=== PATIENT | female | born 1955 | race Caucasian/White ===

== ENCOUNTER 2016-12-22 10:22 | Day surgery (SDC) | payer BC ==
[2016-12-20 09:43] VITALS: BMI 36.1
--- NOTE | 2016-12-22 08:01 | HP ---
Admitting History and Physical - Admission Chief Complaint: Right knee postoperative neuroma History of Present Illness: 61 year old female presents in regard to her right knee. She is status post previous surgery to her right knee. Following that she developed a painful tingling sensation in her right knee, which resulted as a neuroma. Patient has failed conservative treatment. Patient would like to proceed with a right knee excision of neuroma. History Source: Patient - Past Medical History Cardiovascular: Yes: AFIB Pulmonary: Yes: Asthma Gastrointestinal: Yes: GERD Psych: Yes: Anxiety ENT: Yes: Allergic Rhinitis - Past Surgical History Additional Past Surgical History: See written H&P in chart - Smoking History Smoking history: Never smoked Have you smoked in the past 12 months: No - Alcohol/Substance Use Hx Alcohol Use: Yes (SOCIALLY) <Mayi Carr - Last Filed: 12/22/16 07:56> - Admission History of Present Illness: 61yo female s/p R knee partial knee replacement and subsequent polyethylene exchange for instability. Pt has had localized pain adjacent to the incision for some time now. Injection of anesthetic in this area in the office completely relieved her pain 100%. The pain returned when the injection wore off. 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 Neuroma excision surgery was discussed after her second injection and she elected to proceed with the procedure. History Source: Patient, Medical Record Limitations to Obtaining History: No Limitations - Past Medical History Additional Past Medical History: See printed PMH/PSH in chart <Sp Moore - Last Filed: 12/22/16 11:59> Home Medications <Mayi Carr - Last Filed: 12/22/16 07:56> <Sp Moore - Last Filed: 12/22/16 11:59> - Allergies Allergies/Adverse Reactions: Allergies Allergy/AdvReac Type Severity Reaction Status Date / Time metoclopramide HCl Allergy ARRHYTHMIA Verified 12/20/16 18:51 [From Reglan] prochlorperazine edisylate Allergy "FACIAL Verified 12/20/16 18:51 [From Compazine] DYSKINESIA" prochlorperazine maleate Allergy "FACIAL Verified 12/20/16 18:51 [From Compazine] DYSKINESIA" propoxyphene HCl Allergy Rash Verified 12/20/16 18:51 [From Darvon] - Home Medications Home Medications: Ambulatory Orders Alprazolam [Xanax] 1 mg PO PRN PRN 03/27/14 Celecoxib [Celebrex] 200 mg PO DAILY 03/27/14 Cyclosporine [Restasis] 1 each OU BID 03/27/14 Desloratadine [Clarinex] 5 mg PO DAILY 03/27/14 Pseudoephedrine HCl [Sudafed] 30 mg PO DAILY 03/27/14 Fluticasone Propionate [Flovent Diskus] 50 mcg IH PRN PRN 11/06/14 Lidocaine 5% Patch [Lidoderm -] 1 patch TP DAILY 11/06/14 Metaxalone [Skelaxin] 800 mg PO HS PRN 11/06/14 Mometasone Furoate [Nasonex] 1 - 2 inh NS PRN PRN 11/06/14 Tiotropium [place] [Spiriva] 18 mcg IH PRN PRN 11/06/14 Tramadol HCl 50 mg PO PRN PRN #40 tablet 11/07/14 Verapamil HCl [Verapamil ER] 120 mg PO HS 11/07/14 Methotrexate [Mexate -] 6 each PO WEEKLY 12/20/16 Omeprazole 20 mg PO DAILY 12/20/16 Review of Systems - Review of Systems Musculoskeletal: reports: Joint Pain (Right knee) <Mayi Crar - Last Filed: 12/22/16 07:56> Physical Examination Constitutional: Yes: Well Nourished, No Distress Eyes: Yes: Conjunctiva Clear HENT: Yes: Atraumatic, Normocephalic Neck: Yes: Supple Cardiovascular: Yes: Regular Rate and Rhythm Respiratory: Yes: Regular Gastrointestinal: Yes: Soft ...Rectal Exam: Yes: Deferred Musculoskeletal: Yes: Other (Right knee pain) <Mayi aCrr - Last Filed: 12/22/16 07:56> Vital Signs: Vital Signs Temperature 98.4 F 12/22/16 11:02 Pulse Rate 83 12/22/16 11:02 Respiratory Rate 18 12/22/16 11:02 Blood Pressure 142/76 12/22/16 11:02 O2 Sat by Pulse Oximetry (%) 97 12/22/16 11:02 Constitutional: Yes: Well Nourished, No Distress, Calm Eyes: Yes: WNL, Conjunctiva Clear, EOM Intact HENT: Yes: WNL, Atraumatic, Normocephalic Neck: Yes: WNL, Supple Cardiovascular: Yes: WNL, Regular Rate and Rhythm Respiratory: Yes: WNL, Regular Gastrointestinal: Yes: WNL ...Rectal Exam: Yes: Deferred Musculoskeletal: Yes: WNL, Other (Right knee - healed surgical scar, c/d/i. ROM 0 to >115 degrees without pain during ROM testing. No valgus/varus laxity. No significant pain on exam other than the localized neuroma which was marked with a skin marker.) Extremities: Yes: WNL, Other Edema: No Peripheral Pulses WNL: Yes Integumentary: Yes: Other (Healed surgical scar with no erythema, induration , or signs of infection. Localized tender spot approx 1-cm lateral to the inferior edge of the incision scar. Otherwise no other painful areas.) Wound/Incision: Yes: Clean/Dry Neurological: Yes: WNL, Alert, Oriented ...Motor Strength: WNL Psychiatric: Yes: WNL, Alert, Oriented Labs: reviewed in paper chart <Sp Moore - Last Filed: 12/22/16 11:59> Imaging - Results X-ray: Image Reviewed <Sp Moore - Last Filed: 12/22/16 11:59> Problem List - Problems (1) Neuroma of right lower extremity Assessment/Plan: surgical resection of neuroma / selective denervation procedure Code(s): D36.13 - [facility] NRV & AUTONM NRV SYS OF LOW B, INC HIP <Sp Moore - Last Filed: 12/22/16 11:59> Assessment/Plan 61 year old female with a postoperative right knee neuroma. Patient has failed conservative treatment. Proceed with a right knee excision of neuroma. <Mayi Carr - Last Filed: 12/22/16 07:56>
[2016-12-22] MEDS ORDERED: LIDOCAINE 1%-EPI 1:100,000 30 ML MDV IJ ONE (12:07)
[2016-12-22] MEDS ORDERED: BUPIVACAINE HCL/PF 2.5 MG/ML - 30 ML VIAL IJ ONE (12:07)
[2016-12-22] MEDS ORDERED: PROPOFOL 20 ML ONE (12:08)
[2016-12-22] MEDS ORDERED: MIDAZOLAM HCL 2 MG/2 ML SINGLE DOSE VIAL ONE ×3 (12:08→12:40)
--- NOTE | 2016-12-22 13:18 | OP ---
Operative Note - Note: Operative Date: 12/22/16 Pre-Operative Diagnosis: right knee postoperative neuroma Operation: right knee neuroma excision Post-Operative Diagnosis: Same as Pre-op Surgeon: Sp Moore Anesthesia: Local Estimated Blood Loss (mls): 0
[2016-12-22 13:30] VITALS: TEMP 97.8
--- NOTE | 2016-12-22 13:54 | OP ---
DATE OF OPERATION: 12/22/2016 PREOPERATIVE DIAGNOSIS: Right knee postoperative neuroma. POSTOPERATIVE DIAGNOSIS: Right knee postoperative neuroma. PROCEDURE: Right knee neuroma excision. SURGEON: Lolly Carter MD HAND CHAIN MAKER: None. ANESTHESIA: Local plus sedation. ESTIMATED BLOOD LOSS: Zero mL. COMPLICATIONS: None. DISPOSITION: The patient was transferred to the PACU in stable condition. INDICATIONS: This is a 61-year-old female who is status post right knee MAKOplasty, partial knee replacement with subsequent polyethylene exchange for laxity several months after the index procedure. After the surgery, the knee was stable and mechanically sound, but she had persistent pain which was localized to a discrete spot inferolateral to the arthroplasty incision. She was seen and examined by me in the office over the past few months and diagnosed with a neuroma, likely of the infrapatellar branch of the saphenous nerve. On 2 different occasions, we injected the painful spot with lidocaine and a small amount of corticosteroid. The 1st injection gave her several months of relief. The 2nd injection only lasted for a short few weeks. After this, the patient elected to have the neuroma surgically removed as she has had a similar condition in her foot and that resolved after surgical excision of the neuroma. The patient understood that the surgical procedure essentially creates a numb spot in place of the previously painful spot and the patient stated that she preferred having this area of numbness to the pain she currently has. She stated that she had similar outcome in her foot and had gotten used to the numbness and it was much better than the pain that she had had prior to the procedure. Other risks, benefits, and alternatives to the procedure were explained to the patient in great detail and she elected to proceed with the surgery. Specifically, we discussed the risks of infection with any type of skin procedure and also the chance that the results may be temporary because the nerve can regenerate and the neuroma could grow back later on. On the date of the procedure, the patient was brought to the operating room and placed supine on the OR table. All bony prominences were padded. Intravenous sedation was administered by the anesthesiologist. A timeout was performed with the team to verify the patient's name, side, site, and administration of antibiotics. Ancef was then administered by the anesthesiologist for infection prophylaxis. A 2-cm incision was made over the painful area approximately 2 cm lateral and 1 cm distal to the inferior edge of the arthroplasty scar. This spot was localized preoperatively in the holding area with the patient unanesthetized and fully awake and we palpated various areas around the knee until we found the epicenter of the pain and this was marked with a skin marker with an "X" and we then repeated this testing with the knee covered with a blanket so that blindly the patient would localize it and we found that this was the spot that she kept returning to after multiple attempts. After the incision, electrocautery was used to cauterize subcutaneous bleeders. Blunt dissection was used to dissect through the subcutaneous tissues down to the fascia overlying the bone. From here, several cutaneous nerves were encountered and these were sharply removed using a rongeur. The cut ends of the nerves were cauterized with electrocautery in hopes of minimizing the chance of nerve regeneration. Next, all vascular structures that had the potential to bleed into this wound bed were cauterized with electrocautery. The entire field was searched for additional cutaneous nerves and no other nerves were found. The wound was then thoroughly irrigated with normal saline. Vicryl 2-0 sutures were used for the subcutaneous tissues with simple interrupted sutures. Monocryl 3-0 suture was used for the skin in a running subcuticular fashion. Dermabond skin adhesive was used for additional closure strength and watertight seal and a sterile Aquacel dressing and MEDARDO wrap were then placed over the incision site. The patient was then taken to the PACU in stable condition fully awake. LOLLY CARTER M.D. LUIS [id number]
[2016-12-22 13:59] VITALS: BP 135/61; PULSE 74
== END 2016-12-22 13:55 | disposition home or self-care (01) ==
LOC: FASU 10:22
PROVIDERS: ATTEND Student in an Organized Health Care Education/Training Program
PROC: 01BD0ZZ Excision of Femoral Nerve, Open Approach (ICD-10-PCS; principal; 2016-12-22 12:54)
DX: G57.81 Other specified mononeuropathies of right lower limb (principal)

== ENCOUNTER 2017-11-24 09:07 | Day surgery (SDC) | payer BC ==
[2017-11-23 10:42] VITALS: BMI 27.1
[2017-11-24] MEDS ORDERED: PROPOFOL 20 ML ONE (11:01)
[2017-11-24] MEDS ORDERED: LIDOCAINE HCL/PF 2% SDV 5ML VIAL ONE (11:02)
[2017-11-24] MEDS ORDERED: DEXAMETHASONE SOD PHOSPHATE 4 MG/1 ML VIAL ONE (11:02)
[2017-11-24] MEDS ORDERED: ONDANSETRON 4 MG/2 ML VIAL ONE (11:02)
[2017-11-24] MEDS ORDERED: ceFAZolin SODIUM 1 GM VIAL ONE (11:02)
[2017-11-24] MEDS ORDERED: KETOROLAC TROMETHAMINE 30 MG/1 ML VIAL ONE (11:02)
[2017-11-24] MEDS ORDERED: fentaNYL CITRATE 250 MCG/5 ML VIAL ONE (11:03)
[2017-11-24] MEDS ORDERED: MIDAZOLAM HCL 2 MG/2 ML SINGLE DOSE VIAL ONE (11:03)
[2017-11-24] MEDS ORDERED: BUPIVACAINE HCL/PF 2.5 MG/ML - 30 ML VIAL IJ ONE (11:15)
[2017-11-24] MEDS ORDERED: EPINEPHrine 1:1,000 1 MG/1 ML - 30ML VIAL (INJECTION) ONE (11:15)
[2017-11-24] MEDS ORDERED: BUPIVACAINE HCL/PF 0.5% (5MG/ML) 10 ML VIAL ONE (11:21)
[2017-11-24] MEDS ORDERED: BUPIVACAINE HCL/PF 0.25% (2.5MG/ML) 10 ML VIAL IJ ONE (12:33)
[2017-11-24] MEDS ORDERED: ONDANSETRON 4 MG/2 ML VIAL IVPUSH PRN (13:21)
[2017-11-24] MEDS ORDERED: oxyCODONE HCL 5 MG TABLET PO PRN ×2 (13:21)
[2017-11-24] MEDS ORDERED: LACTATED RINGERS SOLUTION 1,000 ML IV SCH (13:30)
[2017-11-24 20:12] VITALS: BP 121/74; PULSE 71; TEMP 98.2
--- NOTE | 2017-11-26 22:52 | OP ---
DATE OF OPERATION: 11/24/2017 SURGEON: Duong Mart MD USER INTERFACE DESIGNER: BRADFORD Chester PREOPERATIVE DIAGNOSIS: 1. Left knee mediolateral meniscal tear. 2. Left knee cartilage injury. 3. Left knee synovitis. POSTOPERATIVE DIAGNOSIS: 1. Left knee mediolateral meniscal tear. 2. Left knee cartilage injury. 3. Left knee synovitis. PROCEDURE: 1. Left knee arthroscopy with partial meniscectomy of the mediolateral meniscus, CPT code 30691. 2. Left knee arthroscopy with chondroplasty and abrasioplasty, CPT code 03509. 3. Left knee arthroscopy with synovectomy including removal of medial plica, CPT code 54710. FINDINGS: 1. Medial meniscus posterior horn tear. 2. Lateral meniscus complete tearing from anterior horn to posterior horn with extensive fragmentation. 3. Synovitis of the patellofemoral and mediolateral notch area. 4. Diffuse grade 1-2 cartilage injury of the medial femoral condyle, tibial plateau, and antegrade 3 changes of medial tibial plateau and femoral condyle. 5. ACL and PCL intact. 6. Diffuse grade 2-4 cartilage injury of the lateral femoral condyle and tibial plateau with 20% grade 4 changes. 7. Central grade 2 cartilage injury of the patella and grade 2-4 changes of the patellofemoral trochlea. PROCEDURE: Informed consent was obtained. The patient came to the operating room, where the lower extremity was prepped and draped in a sterile fashion. A tourniquet was placed on the upper thigh, but not inflated. Using standard arthroscopic technique, a lateral incision and portal was made to allow for introduction of the camera into the suprapatellar bursa. This was then taken to the medial joint line, where under direct visualization, a medial incision and portal was made. Excessive synovium noted in the medial, lateral and patellofemoral and notch area was removed by an upbiter, shaver and Bovie cautery. This was found to bring in inflammatory tissue into the joint surface, a source of pain and dysfunction. Probing of the medial and lateral meniscus found tears, as described in the findings. These were removed with the upbiter and shaver and taken back to a stable rim. Grade 2 to 3 degenerative changes were treated with a chondroplasty, removing all flaking surfaces with low-setting Bovie along the periphery to prevent further flaking. Grade 4 changes, as noted, were treated with an abrasoplasty, creating a bleeding surface at the bone/cartilage interface. Aggressive debridement with shaver/av created bleeding surface. Mirco fracture also done when indicated in findings All areas of the knee were once again reexamined. The knee was then drained and a single suture was placed in all portals. A sterile dressing was placed and the patient was transferred to the recovery room without complication. DUONG MART M.D. [id number]
== END 2017-11-24 18:30 | disposition home or self-care (01) ==
LOC: FASU 09:07
PROVIDERS: ATTEND Orthopaedic Surgery
PROC: 0SBD4ZZ Excision of Left Knee Joint, Percutaneous Endoscopic Approach (ICD-10-PCS; 2017-11-24)
PROC: 0SBD4ZZ Excision of Left Knee Joint, Percutaneous Endoscopic Approach (ICD-10-PCS; 2017-11-24)
PROC: 0SBD4ZZ Excision of Left Knee Joint, Percutaneous Endoscopic Approach (ICD-10-PCS; principal; 2017-11-24 12:26)
DX: S83.242A Other tear of medial meniscus, current injury, left knee, initial encounter (principal); S83.282A Other tear of lateral meniscus, current injury, left knee, initial encounter; S83.8X2A Sprain of other specified parts of left knee, initial encounter; M65.862 Other synovitis and tenosynovitis, left lower leg; X58.XXXA Exposure to other specified factors, initial encounter; Y93.9 Activity, unspecified; Y92.9 Unspecified place or not applicable
CPT/HCPCS: 94760

== ENCOUNTER 2023-03-15 07:11 | Day surgery (SDC) | payer OTHER ==
[2023-03-10 09:18] VITALS: BMI 28.3
[2023-03-15] MEDS ORDERED: MIDAZOLAM HCL 2 MG/2 ML SINGLE DOSE VIAL ONE (09:34)
[2023-03-15] MEDS ORDERED: DEXMEDETOMIDINE HCL 200 MCG/2 ML IVPB ONE (09:34)
[2023-03-15] MEDS ORDERED: BUPIVACAINE LIPOSOME/PF (EXPAREL) 266 MG/20 ML VIAL ONE (09:34)
[2023-03-15] MEDS ORDERED: FENTANYL CITRATE/PF 50 MCG/ML VIAL ONE ×2 (09:34→13:14)
[2023-03-15] MEDS ORDERED: BUPIVACAINE HCL/PF 0.5% (5MG/ML) 10 ML VIAL ONE (09:42)
[2023-03-15] MEDS ORDERED: CEFAZOLIN 2 GM in DEXTROSE 5%-WATER - 50 ML IVPB ONE (10:00)
[2023-03-15] MEDS ORDERED: HYDROmorphone HCL/PF 1 MG/ML VIAL ONE (10:23)
[2023-03-15] MEDS ORDERED: ePHEDrine SULFATE 50 MG/1 ML AMPULE ONE (10:25)
[2023-03-15] MEDS ORDERED: PROPOFOL 20 ML ONE (10:26)
[2023-03-15] MEDS ORDERED: TRANEXAMIC ACID 1000 MG/10 ML VIAL IVPUSH ONE ×2 (11:00→19:00)
[2023-03-15] MEDS ORDERED: ceFAZolin SODIUM 1 GM VIAL ONE (11:11)
[2023-03-15] MEDS ORDERED: TRANEXAMIC ACID 1000 MG/10 ML VIAL ONE (11:11)
[2023-03-15] MEDS ORDERED: LIDOCAINE HCL/PF 2% SDV 5ML VIAL ONE (11:11)
[2023-03-15] MEDS ORDERED: ONDANSETRON 4 MG/2 ML VIAL ONE ×2 (11:11→13:14)
[2023-03-15] MEDS ORDERED: ONDANSETRON 4 MG/2 ML VIAL IVPUSH PRN ×2 (12:20→12:37)
[2023-03-15] MEDS ORDERED: MAGNESIUM HYDROX 2400MG/30ML ORAL SUSPENSION 30 ML CUP PO PRN (12:20)
[2023-03-15] MEDS ORDERED: MAG HYDROX/AL HYDROX/SIMETH 30 ML UNIT-DOSE CUP PO PRN (12:20)
[2023-03-15] MEDS ORDERED: ALPRAZolam 1 MG TABLET PO PRN (12:26)
[2023-03-15] MEDS ORDERED: MOMETASONE FUROATE PUMP NS PRN (12:26)
[2023-03-15] MEDS ORDERED: FLUTICASONE PROPIONATE IH PRN (12:26)
[2023-03-15] MEDS ORDERED: ADALIMUMAB 40 MG/0.8 ML SQ SCH (12:30)
[2023-03-15] MEDS ORDERED: ALBUTEROL SO4 HFA INHALER IH PRN (12:30)
[2023-03-15] MEDS ORDERED: ACETAMINOPHEN 1000 MG/100 ML BAG IVPB SCH (12:30)
[2023-03-15] MEDS: oxyCODONE HCL 5 MG TABLET PO PRN ×2 (14:23→18:28)
[2023-03-15] MEDS: CEFAZOLIN SODIUM 2 GM in DEXTROSE 5%-WATER 100 ML IVPB SCH (18:28)
[2023-03-15] MEDS: LACTATED RINGERS SOLUTION 1,000 ML IV SCH (18:28)
[2023-03-15] MEDS: ACETAMINOPHEN 1000 MG/100 ML BAG IVPB SCH (21:08)
[2023-03-15] MEDS: DEXAMETHASONE 4 MG TABLET (FP) PO SCH (21:09)
[2023-03-15] MEDS: SENNOSIDES/DOCUSATE COMBO (SENNA PLUS) TABLET (UD) PO SCH (21:10)
[2023-03-15] MEDS: metoPROLOL SUCCINATE 25 MG TAB.SR.24H (FP) PO SCH ×2 (21:11→21:16)
[2023-03-15] MEDS: ASCORBIC ACID 500 MG TABLET (FP) PO SCH (21:11)
[2023-03-15] MEDS: ASPIRIN 81 MG CHEWABLE TABLETS PO SCH (21:11)
[2023-03-15] MEDS: HYDROXYCHLOROQUINE SO4 200 MG TABLET (FP) PO SCH (21:11)
[2023-03-15] MEDS ORDERED: CELECOXIB 100 MG CAPSULE PO SCH (22:00)
[2023-03-15] MEDS ORDERED: FAMOTIDINE 20 MG TABLET PO SCH (22:00)
[2023-03-15] MEDS ORDERED: PATIENT'S OWN MEDICATION (NON-FORMULARY) (Cyclosporine [Restasis] 1 EACH Droperette) OU SCH (22:00)
[2023-03-16] MEDS: CEFAZOLIN SODIUM 2 GM in DEXTROSE 5%-WATER 100 ML IVPB SCH (01:46)
[2023-03-16] MEDS: oxyCODONE HCL 5 MG TABLET PO PRN ×4 (03:50→16:51)
[2023-03-16] MEDS: ACETAMINOPHEN 1000 MG/100 ML BAG IVPB SCH ×3 (06:27→20:17)
[2023-03-16] MEDS: CELECOXIB 200 MG CAPSULE PO SCH (09:12)
[2023-03-16] MEDS: LIDOCAINE 5% TOPICAL PATCH TP SCH (09:12)
[2023-03-16] MEDS: PSEUDOEPHEDRINE HCL 30 MG TABLET PO SCH (09:14)
[2023-03-16] MEDS: ASPIRIN 81 MG CHEWABLE TABLETS PO SCH ×2 (09:14→21:25)
[2023-03-16] MEDS: PANTOPRAZOLE 40 MG TABLET PO SCH (09:15)
[2023-03-16] MEDS: SENNOSIDES/DOCUSATE COMBO (SENNA PLUS) TABLET (UD) PO SCH ×2 (09:15→21:26)
[2023-03-16] MEDS: GABAPENTIN 300 MG CAPSULE PO SCH (09:16)
[2023-03-16] MEDS: DEXAMETHASONE 4 MG TABLET (FP) PO SCH ×2 (09:16→21:26)
[2023-03-16] MEDS: LORATADINE 10 MG TABLET PO SCH (09:16)
[2023-03-16] MEDS: ASCORBIC ACID 500 MG TABLET (FP) PO SCH ×2 (09:17→21:26)
[2023-03-16] MEDS: LISINOPRIL 20 MG TABLET PO SCH (09:17)
[2023-03-16] MEDS: HYDROXYCHLOROQUINE SO4 200 MG TABLET (FP) PO SCH ×2 (09:18→21:26)
[2023-03-16] MEDS: MULTIVITAMINS (DAILY MVI) TABLET (FP) PO SCH (09:18)
[2023-03-16] MEDS: HYDROCHLOROTHIAZIDE 12.5 MG CAPSULE (FP) PO SCH (09:47)
[2023-03-16] MEDS: TIOTROPIUM BROMIDE 2.5 MCG (SPIRIVA) RESPIMAT INHALER IH SCH (09:47)
[2023-03-16] MEDS ORDERED: TRANEXAMIC ACID 1000 MG/10 ML VIAL IVPUSH ONE (10:00)
[2023-03-16] MEDS ORDERED: DEXAMETHASONE 4 MG TABLET (FP) PO ONE (10:00)
[2023-03-16] MEDS ORDERED: PATIENT'S OWN MEDICATION (NON-FORMULARY) (Omeprazole 20 MG Capsule.Dr) PO SCH (10:00)
[2023-03-16] MEDS ORDERED: PATIENT'S OWN MEDICATION (NON-FORMULARY) (Tiotropium Bromide [Spiriva] 18 MCG/INH Inh) IH SCH (10:00)
[2023-03-16] MEDS ORDERED: DESLORATADINE 5 MG PO SCH (10:00)
[2023-03-16] MEDS ORDERED: PATIENT'S OWN MEDICATION (NON-FORMULARY) (Lisinopril/Hydrochlorothiazide [Lisinopril-Hctz PO SCH (10:00)
[2023-03-16] MEDS: LACTATED RINGERS SOLUTION 1,000 ML IV SCH (16:37)
[2023-03-16] MEDS ORDERED: LIDOCAINE PATCH REMOVAL MC SCH (22:00)
[2023-03-16] MEDS ORDERED: ATORVASTATIN CA 10 MG TABLET (FP) PO SCH (22:00)
[2023-03-16] MEDS: metoPROLOL SUCCINATE 25 MG TAB.SR.24H (FP) PO SCH (23:30)
[2023-03-17] MEDS: oxyCODONE HCL 5 MG TABLET PO PRN ×2 (04:30→10:46)
[2023-03-17] MEDS: ACETAMINOPHEN 1000 MG/100 ML BAG IVPB SCH (06:55)
[2023-03-17 09:46] VITALS: BP 132/57; PULSE 80; RESP 16; TEMP 98.7
[2023-03-17] MEDS: ASPIRIN 81 MG CHEWABLE TABLETS PO SCH (09:48)
[2023-03-17] MEDS: LISINOPRIL 20 MG TABLET PO SCH (09:49)
[2023-03-17] MEDS: CELECOXIB 200 MG CAPSULE PO SCH (09:49)
[2023-03-17] MEDS: ASCORBIC ACID 500 MG TABLET (FP) PO SCH (09:49)
[2023-03-17] MEDS: HYDROXYCHLOROQUINE SO4 200 MG TABLET (FP) PO SCH (09:49)
[2023-03-17] MEDS: MULTIVITAMINS (DAILY MVI) TABLET (FP) PO SCH (09:49)
[2023-03-17] MEDS: LORATADINE 10 MG TABLET PO SCH (09:49)
[2023-03-17] MEDS: DEXAMETHASONE 4 MG TABLET (FP) PO SCH (09:50)
[2023-03-17] MEDS: LIDOCAINE 5% TOPICAL PATCH TP SCH (09:52)
[2023-03-17] MEDS: GABAPENTIN 300 MG CAPSULE PO SCH (09:52)
[2023-03-17] MEDS: HYDROCHLOROTHIAZIDE 12.5 MG CAPSULE (FP) PO SCH (09:54)
[2023-03-17] MEDS: PANTOPRAZOLE 40 MG TABLET PO SCH (09:54)
[2023-03-17] MEDS: SENNOSIDES/DOCUSATE COMBO (SENNA PLUS) TABLET (UD) PO SCH (09:54)
[2023-03-17] MEDS: TIOTROPIUM BROMIDE 2.5 MCG (SPIRIVA) RESPIMAT INHALER IH SCH (10:47)
[2023-03-17] MEDS: PSEUDOEPHEDRINE HCL 30 MG TABLET PO SCH (10:48)
== END 2023-03-17 13:35 | disposition home or self-care (01) ==
LOC: FASUSAT 07:11 → FM/S 14:12 → FASUSAT 03-17 13:35
PROVIDERS: ATTEND Orthopaedic Surgery
PROC: 0SRD0J9 Replacement of Left Knee Joint with Synthetic Substitute, Cemented, Open Approach (ICD-10-PCS; principal; 2023-03-15 10:35)
DX: M17.12 Unilateral primary osteoarthritis, left knee (principal)
CPT/HCPCS: 27447; C1776; 73560-TC-LT-FY; 94760; 97010-GP; 97116-GP; 97162-GP; C1889

== ENCOUNTER 2024-04-24 06:11 | Day surgery (SDC) | payer OTHER, BC ==
[2024-04-17 12:28] VITALS: BMI 27.7
[2024-04-24] MEDS ORDERED: MIDAZOLAM HCL 2 MG/2 ML SINGLE DOSE VIAL ONE ×2 (07:04→08:19)
[2024-04-24] MEDS ORDERED: ROPIVACAINE HCL/PF 100 MG/20 ML VIAL ONE (07:05)
[2024-04-24] MEDS ORDERED: DEXAMETHASONE SOD PHOSPHATE 10 MG/1 ML VIAL ONE (07:05)
[2024-04-24] MEDS ORDERED: BUPIVACAINE HCL/PF 0.5% (5MG/ML) 10 ML VIAL ONE (07:12)
[2024-04-24] MEDS ORDERED: EPINEPHrine 1:1,000 1,000 MCG/ML ML ONE (07:16)
[2024-04-24] MEDS ORDERED: BUPIVACAINE HCL/EPINEPHRINE/PF 30 ML VIAL IJ ONE (07:16)
[2024-04-24] MEDS ORDERED: PROPOFOL 40 ML ONE (08:00)
[2024-04-24] MEDS ORDERED: PROPOFOL 20 ML ONE ×2 (08:10→09:19)
[2024-04-24] MEDS: BUPIVACAINE 0.25% /EPI 1:200,000 10 ML VIAL INF ONE (08:37)
[2024-04-24] MEDS ORDERED: HYDROCORTISONE SOD SUCCINATE 100 MG/2 ML VIAL ONE (08:44)
[2024-04-24] MEDS ORDERED: ONDANSETRON 4 MG/2 ML VIAL IVPUSH PRN (09:39)
[2024-04-24] MEDS ORDERED: oxyCODONE HCL 5 MG TABLET PO PRN (09:39)
[2024-04-24] MEDS ORDERED: LACTATED RINGERS SOLUTION 1,000 ML IV SCH (09:45)
[2024-04-24] MEDS ORDERED: oxyCODONE HCL 5 MG TABLET ONE (10:13)
[2024-04-24] MEDS: oxyCODONE HCL 5 MG TABLET PO ONE (10:15)
[2024-04-24 10:29] VITALS: RESP 16; TEMP 96.6
[2024-04-24 10:56] VITALS: BP 106/49; PULSE 75
== END 2024-04-24 11:30 | disposition home or self-care (01) ==
LOC: FASU 06:11
PROVIDERS: ATTEND Orthopaedic Surgery
PROC: 0RBJ4ZZ Excision of Right Shoulder Joint, Percutaneous Endoscopic Approach (ICD-10-PCS; 2024-04-24)
PROC: 0LQ14ZZ Repair Right Shoulder Tendon, Percutaneous Endoscopic Approach (ICD-10-PCS; principal; 2024-04-24 08:26)
PROC: 0RNJ4ZZ Release Right Shoulder Joint, Percutaneous Endoscopic Approach (ICD-10-PCS; 2024-04-24 08:26)
DX: M75.101 Unspecified rotator cuff tear or rupture of right shoulder, not specified as traumatic (principal)
CPT/HCPCS: 94760; C1713; J1100